=== PATIENT | female | born 1990 | race Caucasian/White ===

== ENCOUNTER 2019-10-25 13:13 | Outpatient (CLI) | payer OTHER | END 2019-10-25 23:59 | disposition home or self-care (01) | LOC: RAD 13:13 | PROVIDERS: ATTEND Family Medicine | DX: O46.8X1 Other antepartum hemorrhage, first trimester (principal); Z3A.01 Less than 8 weeks gestation of pregnancy | CPT/HCPCS: 76801 ==

== ENCOUNTER 2019-11-03 18:18 | Emergency (ER) | payer OTHER ==
[~2019-11-03] VITALS: Ht 167.6 cm; Wt 87.0 kg
[2019-11-03 19:31] LABS: ALBUMIN 3.9 g/dL (3.4-5.0); ANION GAP 8 mmol/L (5-15); BASOPHILS # (AUTO) 0.04 x10^3/uL (0-0.1); BASOPHILS % (AUTO) 0 % (0-1); CALCIUM 9.6 mg/dL (8.5-10.1); CHLORIDE 107 mmol/L (98-107); EOSINOPHILS # (AUTO) 0.11 x10^3/uL (0-0.4); EOSINOPHILS % (AUTO) 1 % (1-7); LYMPHOCYTES # (AUTO) 3.06 x10^3/uL (1-3.4); LYMPHOCYTES % (AUTO) 30 % (22-44); MD NO; MEAN CORPUSCULAR HEMOGLOBIN 29.2 pg (27.0-34.8); MEAN CORPUSCULAR HGB CONC 32.3 g/dL (32.4-35.8); MEAN CORPUSCULAR VOLUME 90.3 fL (80-100); MEAN PLATELET VOLUME 8.6 fL (7.4-10.4); MONOCYTES # (AUTO) 0.82 x10^3/uL (0.2-0.8); MONOCYTES % (AUTO) 8 % (2-9); NEUTROPHILS # (AUTO) 6.08 x10^3/uL (1.8-6.8); NEUTROPHILS % (AUTO) 60 % (42-75); PLATELET COUNT 314 x10^3/uL (130-400); RED BLOOD COUNT 4.69 x10^6/uL (3.82-5.3); RED CELL DISTRIBUTION WIDTH 12.9 % (9.6-15.2)
--- NOTE | 2019-11-03 19:37 | NUR ---
Pt to room at this time.
[2019-11-03 19:47] LABS: MICROSCOPIC INDICATED
[2019-11-03 19:50] LABS: ALANINE AMINOTRANSFERASE 33 U/L (12-78); ALKALINE PHOSPHATASE 76 U/L (45-117); BILIRUBIN,TOTAL 0.2 mg/dL (0.2-1.0); CREATININE 0.84 mg/dL (0.55-1.02); TOTAL PROTEIN 8.2 g/dL (6.4-8.2)
[2019-11-03 20:43] VITALS: BP 109/61
[2019-11-03] MEDS ORDERED: OMEP-110 PO (21:04)
[2019-11-03 21:14] VITALS: BP 109/61
== END 2019-11-03 21:17 | disposition home or self-care (01) ==
LOC: ED 19:43
DX: O20.0 Threatened abortion (principal); Z3A.01 Less than 8 weeks gestation of pregnancy; R10.9 Unspecified abdominal pain
CPT/HCPCS: 36415; 76801; 80053; 81001; 84702; 85025; 86850; 86900; 87086; 99284; J2790

== ENCOUNTER 2019-12-30 15:28 | Emergency (ER) | payer OTHER ==
[~2019-12-30] VITALS: Ht 167.6 cm; Wt 85.0 kg
[~2019-12-30 15:28] MED LIST: OMEP-110 PO
[2019-12-30 15:29] VITALS: BP 112/61
[2019-12-30] MEDS ORDERED: ONDANSETRON 2MG/ML, 2ML ONE (15:52)
[2019-12-30] MEDS ORDERED: SODIUM CHLORIDE FLUSH 10ML SYR IVF ONE (16:00)
[2019-12-30] MEDS ORDERED: ONDANSETRON 2MG/ML, 2ML IVPush ONE (16:00)
[2019-12-30 16:12] LABS: BASOPHILS # (AUTO) 0.02 x10^3/uL (0-0.1); BASOPHILS % (AUTO) 0 % (0-1); EOSINOPHILS # (AUTO) 0.09 x10^3/uL (0-0.4); EOSINOPHILS % (AUTO) 1 % (1-7); LYMPHOCYTES # (AUTO) 2.62 x10^3/uL (1-3.4); LYMPHOCYTES % (AUTO) 28 % (22-44); MD NO; MEAN CORPUSCULAR HEMOGLOBIN 29.6 pg (27.0-34.8); MEAN CORPUSCULAR HGB CONC 33.6 g/dL (32.4-35.8); MEAN CORPUSCULAR VOLUME 88.3 fL (80-100); MEAN PLATELET VOLUME 8.6 fL (7.4-10.4); MONOCYTES # (AUTO) 0.89 x10^3/uL (0.2-0.8); MONOCYTES % (AUTO) 10 % (2-9); NEUTROPHILS # (AUTO) 5.73 x10^3/uL (1.8-6.8); NEUTROPHILS % (AUTO) 61 % (42-75); PLATELET COUNT 197 x10^3/uL (130-400); RED BLOOD COUNT 4.23 x10^6/uL (3.82-5.3)
[2019-12-30 16:23] LABS: ALANINE AMINOTRANSFERASE 26 U/L (12-78); ALBUMIN 3.2 g/dL (3.4-5.0); ANION GAP 5 mmol/L (5-15); CALCIUM 8.8 mg/dL (8.5-10.1); CHLORIDE 111 mmol/L (98-107); CREATININE 0.65 mg/dL (0.55-1.02)
[2019-12-30 16:26] LABS: ALKALINE PHOSPHATASE 56 U/L (45-117); BILIRUBIN,TOTAL 0.2 mg/dL (0.2-1.0); TOTAL PROTEIN 7.3 g/dL (6.4-8.2)
[2019-12-30] MEDS ORDERED: ACETAMINOPHEN 500 MG TABLET ONE (16:35)
[2019-12-30] MEDS ORDERED: ACETAMINOPHEN 500 MG TABLET PO ONE (17:00)
[2019-12-30] MEDS ORDERED: LIDODERM 5% PATCH TD ONE ×2 (18:00)
[2019-12-31] MEDS ORDERED: LIDODERM REMOVE PATCH NOTE XX ONE (06:00)
== END 2019-12-30 18:56 | disposition home or self-care (01) ==
LOC: ED 16:12
DX: O26.892 Other specified pregnancy related conditions, second trimester (principal); S39.012A Strain of muscle, fascia and tendon of lower back, initial encounter; Z3A.16 16 weeks gestation of pregnancy; X58.XXXA Exposure to other specified factors, initial encounter; Y93.89 Activity, other specified; Y92.89 Other specified places as the place of occurrence of the external cause; Y99.8 Other external cause status
CPT/HCPCS: 36415; 80053; 85025; 96374; 99283; J2405

== ENCOUNTER 2020-03-09 10:32 | Outpatient (CLI) | payer OTHER ==
[~2020-03-09] VITALS: Ht 167.6 cm; Wt 90.9 kg
[2020-03-09 11:23] LABS: BASOPHILS % (AUTO) 0 % (0-1); EOSINOPHILS % (AUTO) 1 % (1-7); LYMPHOCYTES % (AUTO) 21 % (22-44); MEAN CORPUSCULAR HEMOGLOBIN 28.4 pg (27.0-34.8); MEAN CORPUSCULAR HGB CONC 32.4 g/dL (32.4-35.8); MEAN PLATELET VOLUME 8.2 fL (7.4-10.4); MONOCYTES % (AUTO) 8 % (2-9); NEUTROPHILS % (AUTO) 70 % (42-75); PLATELET COUNT 216 x10^3/uL (130-400); RED BLOOD COUNT 3.94 x10^6/uL (3.82-5.3); RED CELL DISTRIBUTION WIDTH 13.5 % (9.6-15.2)
[2020-03-09 11:26] LABS: MD NO
[2020-03-09] MEDS ORDERED: RHOGAM FROM BLOOD BANK 1 NOTE EA IM/IV ONE (13:00)
[2020-03-09 13:07] LABS: MICROSCOPIC NOT IND
== END 2020-03-09 13:25 | disposition home or self-care (01) ==
LOC: LDOP 10:32
PROVIDERS: ATTEND Obstetrics & Gynecology
DX: O26.892 Other specified pregnancy related conditions, second trimester (principal); Z67.41 Type O blood, Rh negative; O9A.212 Injury, poisoning and certain other consequences of external causes complicating pregnancy, second trimester; W19.XXXA Unspecified fall, initial encounter; Z3A.25 25 weeks gestation of pregnancy; Y92.89 Other specified places as the place of occurrence of the external cause; Y93.89 Activity, other specified; Y99.8 Other external cause status
CPT/HCPCS: 36415; 76815; 81003; 85025; 85460; 86850; 86900; 96372; 99211; J2790; 59025; G0463

== ENCOUNTER 2020-06-04 11:36 | Outpatient (CLI) | payer OTHER ==
[~2020-06-04] VITALS: Ht 167.6 cm; Wt 106.0 kg
[2020-06-04] MEDS ORDERED: PREN1TAB60 PO (12:41)
== END 2020-06-04 12:58 | disposition home or self-care (01) ==
LOC: LDOP 11:36
PROVIDERS: ATTEND Obstetrics & Gynecology
DX: O42.92 Full-term premature rupture of membranes, unspecified as to length of time between rupture and onset of labor (principal); Z3A.38 38 weeks gestation of pregnancy
CPT/HCPCS: 59025; 84112

== ENCOUNTER 2020-11-03 20:27 | Emergency (ER) | payer OTHER ==
[~2020-11-03] VITALS: Ht 167.6 cm; Wt 94.3 kg
[~2020-11-03 20:27] MED LIST changes: +IBUP-1222 PO; +OXYC1TAB14 PO; +PREN1TAB60 PO
--- NOTE | 2020-11-03 21:13 | NUR ---
PT ARRIVES TO ER WITH MOTHER AT BEDSIDE, PT HERE FOR SI, PT REPORTEDLY TOOK EXTRA ZOLOFT PLUS OVER THE COUNTER SLEEPING PILLS AROUND 8PM TODAY, PT TEARFUL AND VERY DIFFICULT WITH ANSWERING ANY TYPE OF QUESTIONS, PT KEEPS STATING, "IM OK, I JUST WANT TO GO HOME", PT STATED, "HYPOTHETICALLY SPEAKING I DO WANT TO KILL MYSELF SO MY SON CAN GAVE INSURANCE", PT REFUSED TO ANSWER ANY OTHER QUESTIONS TRUTHFULLY WITHOUT BEING "HYPOTHETICAL", PT REFUSED TO ANSWER IF SHE HAS A HISTORY OF SUICIDAL THOUGHTS OR IDEATION, PT JUST LOOKS STRAIGHT AHEAD AND TRIES TO TURN THE CONVERSATION AROUND ON THIS RN, PT CRYING AND ARGUING WITH MOTHER, PT DONT COOPERATIVE WITH THIS RN WHEN THIS RN ASKS ANY TYPE OF QUESTIONS
--- NOTE | 2020-11-03 21:40 | NUR ---
CHARGE NURSE IN ROOM TO TALK TO PT ABOUT TREATMENT AND CARE, PT AGREEING TO LABS AND URINALYSIS AT THIS TIME, MOTHER NO LONGER AT BEDSIDE BECAUSE PT AND MOTHER STARTED TO ARGUE, NAD AT THIS MOMENT, GARAGE DOORS DOWN, BELONGINGS IN SAFE, PT HOOKED UP TO PULSE OX, MARKETING RECRUITER AND BLOOD PRESSURE CUFF
[2020-11-03 21:58] LABS: BASOPHILS % (AUTO) 0 % (0-1); EOSINOPHILS % (AUTO) 0 % (1-7); LYMPHOCYTES % (AUTO) 8 % (22-44); MEAN CORPUSCULAR HEMOGLOBIN 24.2 pg (27.0-34.8); MEAN CORPUSCULAR HGB CONC 32.7 g/dL (32.4-35.8); MEAN PLATELET VOLUME 7.8 fL (7.4-10.4); MONOCYTES % (AUTO) 1 % (2-9); NEUTROPHILS % (AUTO) 91 % (42-75); PLATELET COUNT 370 x10^3/uL (130-400); RED CELL DISTRIBUTION WIDTH 21.2 % (9.6-15.2)
[2020-11-03 22:07] LABS: ALANINE AMINOTRANSFERASE 29 U/L (12-78); ALBUMIN 3.8 g/dL (3.4-5.0); ANION GAP 8 mmol/L (5-15); CALCIUM 9.1 mg/dL (8.5-10.1); CHLORIDE 113 mmol/L (98-107); CREATININE 0.82 mg/dL (0.55-1.02)
[2020-11-03 22:09] LABS: SALICYLATE LEVEL < 1.7 mg/dL (2.8-20.0)
[2020-11-03 22:12] LABS: ALKALINE PHOSPHATASE 114 U/L (45-117); BILIRUBIN,TOTAL 0.2 mg/dL (0.2-1.0); TOTAL PROTEIN 8.7 g/dL (6.4-8.2)
[2020-11-03 23:28] LABS: BENZODIAZEPINE SCREEN, URINE Negative (Negative); CANNABINOID SCREEN, URINE Negative (Negative); COCAINE SCREEN, URINE Negative (Negative); METHADONE SCREEN, URINE Negative (Negative)
[2020-11-03] MEDS ORDERED: IBUPROFEN 600 MG TABLET ONE (23:38)
[2020-11-03 23:40] LABS: AMPHETAMINE SCREEN, URINE Negative (Negative); BARBITURATE SCREEN, URINE Negative (Negative); OPIATE SCREEN, URINE Negative (Negative)
--- NOTE | 2020-11-03 23:41 | NUR ---
PT LAYING IN BED, A/OX4, PT NOT TEARFUL OR CRYING AT THIS TIME, ALL NEEDS IN REACH, CALL LIGHT IN REACH, NAD AT THIS TIME, GARAGE DOORS DOWN, SITTER IN LINE OF SIGHT
[2020-11-04] MEDS ORDERED: IBUPROFEN 600 MG TABLET PO ONE
--- NOTE | 2020-11-04 00:09 | NUR ---
PT ASLEEP IN BED, ALL NEEDS IN REACH, CALL LIGHT IN REACH, NAD, GARAGE DOORS DOWN WITH SITTER IN LINE OF SIGHT
--- NOTE | 2020-11-04 01:03 | NUR ---
PT ASLEEP IN BED, ALL NEEDS IN REACH, CALL LIGHT IN REACH, NAD AT THIS TIME, GARAGE DOORS DOWN WITH SITTER IN LINE OF SIGHT
--- NOTE | 2020-11-04 02:24 | NUR ---
PT BLEW A 0.088 ON THE BREATHALYZER AT THIS TIME
--- NOTE | 2020-11-04 03:21 | NUR ---
PT ASLEEP IN BED, ALL NEEDS IN REACH, CALL LIGHT IN REACH, NAD AT THIS TIME, GARAGE DOORS DOWN WITH SITTER IN LINE OF SIGHT
--- NOTE | 2020-11-04 04:23 | NUR ---
PT ASLEEP IN BED, ALL NEEDS IN REACH, CALL LIGHT IN REACH, NAD AT THIS TIME, GARAGE DOORS DOWN WITH SITTER IN LINE OF SIGHT
--- NOTE | 2020-11-04 05:31 | NUR ---
PT LAYING DOWN IN BED, A/OX3, ALL NEEDS IN REACH, CALL LIGHT IN REACH, NAD A THIS TIME, PT WAITING FOR TELEPSYCH CONUSLT, GARAGE DOORS DOWN, SITTER IN LINE OF SIGHT
--- NOTE | 2020-11-04 05:49 | NUR ---
MD AT BEDSIDE TO DISCUSS POC
--- NOTE | 2020-11-04 06:03 | NUR ---
PT LAYING IN BED, A/OX3, ALL NEEDS IN REACH, CALL [facility] IN [facility], NAD AT THIS TIME, MD WAS IN ROOM TO DISCUSS PLAN OF CARE WITH PT AND MD INFORMED PT OF LEGAL HOLD AND PT UPSET THAT SHE IS ON LEGAL HOLD BUT LAYING IN BED CALMLY AT THIS TIME, GARAGE DOORS DOWN WITH SITTER IN LINE OF SIGHT
--- NOTE | 2020-11-04 07:05 | NUR ---
PT LAYING ON BACK ON ED GURNEY. PT ASKING WHEN MOM CAN VISIT AND ASKING TO GO HOME. PT ADVISED THAT SHE NEEDED FURTHER EVAL. PT PROVIDED WATER AND BED ADJUSTED. SITTER OUTSIDE ROOM IN LINE OF SIGHT.
--- NOTE | 2020-11-04 07:34 | NUR ---
THROUGHPUT RN: MARISELA IN [facility] NOTIFIED OF PT.
--- NOTE | 2020-11-04 07:36 | NUR ---
THROUGHPUT RN: [facility], AND [facility].
[2020-11-04 07:58] VITALS: BP 113/66
--- NOTE | 2020-11-04 08:13 | NUR ---
PT BREAKFAST TRAY DELIVERED. PT MOM BEDSIDE. NAD. VSS.
--- NOTE | 2020-11-04 10:59 | NUR ---
REPORT TO NIK RN
[2020-11-05] MEDS ORDERED: SERT50TA PO (16:28)
[2020-11-05] MEDS ORDERED: OMEP40CA8 PO (16:29)
== END 2020-11-04 11:13 ==
LOC: ED 11-04 07:21
DX: T43.222A Poisoning by selective serotonin reuptake inhibitors, intentional self-harm, initial encounter (principal); Y92.89 Other specified places as the place of occurrence of the external cause; F10.129 Alcohol abuse with intoxication, unspecified; Y90.9 Presence of alcohol in blood, level not specified; R94.31 Abnormal electrocardiogram [ECG] [EKG]; Z20.822 Contact with and (suspected) exposure to COVID-19
CPT/HCPCS: 36415; 80053; 80299; 80307; 80320; 80329; 84703; 85025; 87426; 93005; 99285; G0480